=== PATIENT | male | born 1975 | race Two or more races ===

== ENCOUNTER 2023-05-11 14:54 | Emergency (ER) | payer OTHER ==
[~2023-05-11] VITALS: Ht 188 cm; Wt 83.9 kg
== END 2023-05-11 18:16 | disposition home or self-care (01) ==
LOC: ER 14:54
DX: R19.7 Diarrhea, unspecified (principal); E86.0 Dehydration; Z88.6 Allergy status to analgesic agent

== ENCOUNTER 2023-07-06 11:15 | Outpatient (CLI) | payer OTHER | END 2023-07-06 12:18 | disposition home or self-care (01) | LOC: RAD 11:15 | PROVIDERS: ATTEND General Practice | DX: S52.92XA Unspecified fracture of left forearm, initial encounter for closed fracture (principal) ==

== ENCOUNTER 2023-07-07 09:32 | Outpatient (CLI) | payer OTHER | END 2023-07-07 13:51 | disposition home or self-care (01) | LOC: LAB 09:32 | PROVIDERS: ATTEND General Practice | DX: Z20.822 Contact with and (suspected) exposure to COVID-19 (principal) ==

== ENCOUNTER 2023-07-18 16:24 | Emergency (ER) | payer OTHER ==
[~2023-07-18] VITALS: Ht 188 cm; Wt 81.6 kg
[2023-07-18] MEDS ORDERED: AMOX-CLAV 875-1 EACH PO (16:43)
== END 2023-07-18 18:13 | disposition home or self-care (01) ==
LOC: ER 16:24
PROVIDERS: General Practice
DX: L03.114 Cellulitis of left upper limb (principal); Z88.6 Allergy status to analgesic agent

== ENCOUNTER 2023-12-20 09:15 | Outpatient (CLI) | payer OTHER ==
[~2023-12-20 09:15] MED LIST: AMOX-CLAV 875-1 EACH PO
== END 2023-12-20 09:22 | disposition home or self-care (01) ==
LOC: RAD 09:15
DX: S52.502D Unspecified fracture of the lower end of left radius, subsequent encounter for closed fracture with routine healing (principal)